=== PATIENT | female | born 1975 | race Two or more races ===

== ENCOUNTER 2018-03-23 09:00 | Outpatient (CLI) | payer OTHER ==
[~2018-03-23 09:00] MED LIST: GILTUSS TR TAB1 EACH PO
== END 2018-03-23 16:16 | disposition home or self-care (01) ==
LOC: LAB 09:00
DX: D50.9 Iron deficiency anemia, unspecified (principal); D51.9 Vitamin B12 deficiency anemia, unspecified

== ENCOUNTER 2020-02-28 01:28 | Emergency (ER) | payer OTHER ==
[~2020-02-28] VITALS: Ht 172.7 cm; Wt 79.4 kg
[2020-02-28] MEDS ORDERED: XOPENEX0.63 MG/3 IH (04:58)
[2020-02-28] MEDS ORDERED: BUDESONIDE0.5 MG/2 M IH (04:58)
== END 2020-02-28 05:11 | disposition home or self-care (01) ==
LOC: ER 01:28
DX: R06.02 Shortness of breath (principal)

== ENCOUNTER 2020-03-04 13:04 | Emergency (ER) | payer OTHER ==
[~2020-03-04] VITALS: Ht 172.7 cm; Wt 77.1 kg
[~2020-03-04 13:04] MED LIST changes: +BUDESONIDE0.5 MG/2 M IH; +XOPENEX0.63 MG/3 IH
== END 2020-03-04 18:00 | disposition home or self-care (01) ==
LOC: ER 13:04
DX: B96.0 Mycoplasma pneumoniae [M. pneumoniae] as the cause of diseases classified elsewhere (principal); J06.9 Acute upper respiratory infection, unspecified

== ENCOUNTER 2020-03-07 11:00 | Emergency (ER) | payer OTHER ==
[~2020-03-07] VITALS: Ht 172.7 cm; Wt 79.4 kg
== END 2020-03-07 11:20 | disposition home or self-care (01) ==
LOC: ER 11:00
DX: F06.4 Anxiety disorder due to known physiological condition (principal)

== ENCOUNTER 2024-12-07 13:46 | Emergency (ER) | payer OTHER ==
[~2024-12-07] VITALS: Ht 172.7 cm; Wt 79.4 kg
[2024-12-07] MEDS ORDERED: TOPROL XL25 M1 PO (15:04)
[2024-12-07] MEDS ORDERED: KETOROLAC TROMETHAMINE 30 MG VIAL IV STA (16:31)
[2024-12-07] MEDS ORDERED: KETOROLAC TROMETHAMINE 30 MG VIAL ONE (16:37)
[2024-12-07 17:26] LABS: HEMATOCRIT 39.1 % (36.0-45.00); HEMOGLOBIN 12.9 g/dL (12.0-15.00); MEAN CELL VOLUME 92.7 fL (80.00-100.00); MEAN CORPUSCULAR HEMOGLOBIN 30.7 pg (27.00-32.0); MEAN CORPUSCULAR HGB CONC 33.1 g/dl (32.0-36.0); PLATELET COUNT 232 K/uL (150-450); RED BLOOD COUNT 4.21 M/uL (4.00-6.00); RED CELL DISTRIBUTION WIDTH 13.5 % (11.5-14.5)
[2024-12-07 17:33] LABS: PH,URINE 5.5 (5.0-8.0); URINE APPEARANCE Clear; URINE BILIRRUBIN Negative (NEGATIVE); URINE BLOOD Negative; URINE COLOR Yellow; URINE GLUCOSE Negative (NEGATIVE); URINE KETONE Trace (NEGATIVE); URINE LEUKOCYTE Negative; URINE NITRATE Negative; URINE PROTEIN Negative (NEGATIVE); URINE UROBILINOGEN 0.2 E.U./dl
[2024-12-07 17:36] LABS: URINE BACTERIA 117.4 uL (0.0-1933); URINE EPITHELIAL CELLS 9.8 uL (0.0-38.8); URINE RBC 2.7 uL (0.0-20.8); URINE WBC 4.2 uL (0.0-23.2)
[2024-12-07 18:25] LABS: CALCIUM 9.5 mg/dL (8.5-10.1); CREATININE SERUM 0.95 mg/dL (0.55-1.02); GFR 62.52; POTASSIUM 4.61 mEq/L (3.5-5.1)
[2024-12-07] MEDS ORDERED: OxyCODONE HCL/APAP UD (PERCOCET) PO STA (20:39)
== END 2024-12-07 22:47 | disposition home or self-care (01) ==
LOC: ER 13:49
PROVIDERS: Emergency Medicine
DX: N23 Unspecified renal colic (principal); N83.291 Other ovarian cyst, right side